=== PATIENT | female | born 1970 | race Caucasian/White ===

== ENCOUNTER 2019-04-12 | Emergency (ER) | payer MEDICAID ==
[2019-04-12] MEDS ORDERED: TGT OMEPRAZ20 MG PO (10:04)
[2019-04-12] MEDS ORDERED: LIPITOR20 MG PO (10:04)
[2019-04-12] MEDS ORDERED: ASMANEX HF100 MCG/AC (10:05)
[2019-04-12] MEDS ORDERED: ARNUITY EL50 MCG/ACT (10:05)
[2019-04-12] MEDS ORDERED: VENTOLIN HFA IN (10:06)
[2019-04-12] MEDS ORDERED: ARNUITY EL100 MCG/AC (10:06)
[2019-04-12 10:29] LABS: HEMATOCRIT 43.8 % (37.0-47.0); HEMOGLOBIN 14.1 g/dl (12.0-16.0); IMMATURE GRANULOCYTES 0.4 % (0.0-5.0); MEAN CELL VOLUME 95.2 fL CALC (80.0-100.0); MEAN CORPUSCULAR HGB 30.7 pG CALC (26.0-32.0); MEAN CORPUSCULAR HGB CONC 32.2 g/L CALC (32.0-36.0); NEUT# 4.64 thou/uL (2.00-7.15); RED BLOOD COUNT 4.6 mill/uL (4.20-5.60); RED CELL DISTRI WIDTH 12.6 % (11.5-15.5)
[2019-04-12 10:31] LABS: ALBUMIN 4.5 g/dL (3.2-5.0); ALKALINE PHOSPHATASE 78 u/l (38-126); ANION GAP 14 (6-22 (CALC)); BILIRUBIN, TOTAL 0.3 mg/dL (0.0-1.4); BUN 9 mg/dL (7-17); BUN/CREATININE RATIO 13 (12-20 (CALC)); CARBON DIOXIDE 26 mmol/l (22-30); CHLORIDE 104 mmol/l (95-108); CREATININE 0.7 mg/dL (0.5-1.0); GFR > 60 ML/MIN (>=60 (CALC)); GFR FOR AFR.AMER. > 60 ML/MIN (>=60 (CALC)); POTASSIUM 4.2 mmol/l (3.5-5.1); SGOT/AST 23 u/l (14-36); SODIUM 140 mmol/l (137-146)
[2019-04-12 10:39] LABS: INTERNATIONAL NORMALIZED RATIO 0.9 RATIO (0.7-1.3); PROTHROMBIN TIME 9.8 SECONDS (9.0-12.5)
[2019-04-12] MEDS ORDERED: MEDDOSEPAK PO (12:35)
== END 2019-04-12 12:42 | disposition home or self-care (01) ==
PROVIDERS: Emergency Medicine
DX: J45.909 Unspecified asthma, uncomplicated (principal)

== ENCOUNTER 2022-10-03 17:41 | Emergency (ER) | payer MEDICAID ==
[~2022-10-03] VITALS: Ht 165.1 cm; Wt 84.2 kg
[~2022-10-03 17:41] MED LIST: ARNUITY EL100 MCG/AC; ARNUITY EL50 MCG/ACT; ASMANEX HF100 MCG/AC; LIPITOR20 MG PO; MEDDOSEPAK PO; TGT OMEPRAZ20 MG PO; VENTOLIN HFA IN
[2022-10-03 17:57] VITALS: BP 107/67
[2022-10-03 18:00] VITALS: BP 111/64
[2022-10-03 18:30] VITALS: BP 110/84
[2022-10-03 19:00] LABS: URINE COLOR YELLOW; URINE GLUCOSE - DIPSTICK NEGATIVE (NEGATIVE)
[2022-10-03 19:01] LABS: URINE BLOOD DIPSTICK NEGATIVE (NEGATIVE); URINE KETONE TRACE mg/dL (NEGATIVE); URINE LEUK ESTERASE NEGATIVE (NEGATIVE); URINE NITRITE - DIPSTICK NEGATIVE (Negative); URINE PH 5.5 (4.5-8.0); URINE PROTEIN - DIPSTICK Trace mg/dL (NEG-TRACE); URINE SPECIFIC GRAVITY >=1.030; URINE UROBILINOGEN - DIPSTICK 0.2 E.U./dL (0.2)
[2022-10-03] MEDS ORDERED: CYCLOBENZAPRINE10 MG PO (20:01)
[2022-10-03] MEDS ORDERED: PREDNISONE10 MG PO (20:01)
[2022-10-03] MEDS ORDERED: NAPROXEN500 MG PO (20:01)
[2022-10-03 20:23] VITALS: BP 110/84
== END 2022-10-03 20:30 | disposition home or self-care (01) ==
LOC: ED 17:41
PROVIDERS: Nurse Practitioner
DX: M54.50 Low back pain, unspecified (principal)

== ENCOUNTER 2024-05-25 17:28 | Emergency (ER) | payer MEDICAID ==
[~2024-05-25] VITALS: Ht 165.1 cm; Wt 98.0 kg
[~2024-05-25 17:28] MED LIST changes: +CEPHALEXIN500 M1 PO; +CYCLOBENZAPRINE1 POW PO; +CYCLOBENZAPRINE10 MG PO; +NABUMETONE750 MG PO; +NAPROXEN500 MG PO; +ORPHENADRINE100 MG PO; +PREDNISONE10 MG PO; +TRAMADOL HYDROC50 M1 PO
[2024-05-25 17:50] VITALS: BP 115/64
[2024-05-25 18:01] VITALS: BP 116/87
[2024-05-25 18:16] VITALS: BP 129/74
[2024-05-25] MEDS ORDERED: CEPHALEXIN500 M1 PO (18:29)
[2024-05-25] MEDS ORDERED: BACTRIM DS1 TAB PO (18:29)
[2024-05-25 18:30] VITALS: BP 115/91
[2024-05-25] MEDS ORDERED: SULFAMETHOXAZOLE W/TRIMETHOPRI 1 COMBO TAB PO ONE (18:30)
[2024-05-25] MEDS ORDERED: CEPHALEXIN MONOHYDRATE 500 MG/CAP PO ONE (18:30)
[2024-05-25 18:39] VITALS: BP 115/91
== END 2024-05-25 18:45 | disposition home or self-care (01) ==
LOC: ED 17:28
DX: T81.41XA Infection following a procedure, superficial incisional surgical site, initial encounter (principal); L03.312 Cellulitis of back [any part except buttock and flank]; B95.61 Methicillin susceptible Staphylococcus aureus infection as the cause of diseases classified elsewhere; Y83.8 Other surgical procedures as the cause of abnormal reaction of the patient, or of later complication, without mention of misadventure at the time of the procedure; Z72.0 Tobacco use; Z98.1 Arthrodesis status